=== PATIENT | male | born 1990 | race Caucasian/White ===

== ENCOUNTER 2020-10-11 14:06 | Emergency (ER) | payer OTHER ==
[~2020-10-11 14:06] MED LIST: CIPRO500 MG PO; FLAGYL500 MG PO; IBUPROFEN800 MG PO; LODINE CAP 300300 MG PO; MUCINEX DM ER1 EAC1 PO; NAPROSYN500 MG PO; NORCO 5-325 TA1 EACH PO; PHENERGAN 25 MG25 M1 PO; ROBAXIN-750750 MG PO; TESSALON PERLE100 MG PO; VENTOLIN HFA 66.7 GM INH
== END 2020-10-11 15:10 | disposition home or self-care (01) ==
LOC: ER1 14:06
DX: R55 Syncope and collapse (principal); R53.1 Weakness
CPT/HCPCS: 81001; 82962; 99284

== ENCOUNTER 2021-07-13 10:33 | Emergency (ER) | payer OTHER | END 2021-07-13 11:30 | disposition home or self-care (01) | LOC: ER1 10:33 | DX: F41.9 Anxiety disorder, unspecified (principal); R07.9 Chest pain, unspecified | CPT/HCPCS: 99284 ==